=== PATIENT | male | born 1955 | race African-American/Black ===

== ENCOUNTER 2023-10-13 20:48 | Inpatient (IN) | payer BC, OTHER ==
[~2023-10-13] VITALS: Ht 154.9 cm; Wt 61.7 kg
[2023-10-13] MEDS ORDERED: DEXTROSE (50%) 50ML SYRG IV PRN (23:45)
[2023-10-13] MEDS: D5W/SOD CHL 0.45% 1,000 ML IV SCH (23:45)
[2023-10-13] MEDS ORDERED: MORPHINE SULFATE INJ 2 MG/ml SYRG IV PRN (23:45)
[2023-10-14] MEDS: D5W/SOD CHL 0.45% 1,000 ML IV SCH ×2 (00:42→19:45)
[2023-10-14] MEDS: ACCU-CHEK COMFORT CURVE STRIP VI SCH ×4 (00:43→18:00)
[2023-10-14] MEDS: InsuLIN REG 1unit/0.01ml Soln (100units/ml) SC SCH ×4 (05:36→18:00)
[2023-10-14 06:17] LABS: Basophils # (auto) 0 10 ^3/uL (0-0.2); Basophils % (auto) 0.4 % (0.0-2.0); Eosinophils # (auto) 0 10 ^3/uL (0-0.8); Eosinophils % (auto) 0.2 % (0.0-7.0); Hematocrit 39.3 % (41.0-53.0); Hemoglobin 13.2 g/dL (13.5-17.5); Lymphocytes # (auto) 0.1 10 ^3/uL (0.4-5.4); Lymphocytes % (auto) 3.3 % (10.0-50.0); Mean Corpuscular Hemoglobin 29.1 pg (28.0-32.0); Mean Corpuscular Hgb Conc. 33.6 g/dL (32.0-36.0); Mean Corpuscular Volume 86.8 fL (80.0-100.0); Monocytes # (auto) 0.5 10 ^3/uL (0-1.3); Monocytes % (auto) 17.5 % (0.0-12.0); Neutrophils # (auto) 2.3 10 ^3/uL (1.6-8.6); Neutrophils % (auto) 78.6 % (37.0-80.0); Nucleated Red Blood Cells % 0.1 %; Red Blood Cells 4.52 10^6/uL (4.5-5.90); Red Cell Distribution Width 15.4 % (11.8-14.3); White Blood Cell 2.9 10^3/uL (4.4-10.8)
[2023-10-14 06:25] LABS: Anion Gap 8 (5-15); Carbon Dioxide 26 mmol/L (20-30); Chloride 105 mmol/L (98-107); Sodium 139 mmol/L (136-145)
[2023-10-14 06:26] LABS: Calcium 9.8 mg/dL (8.5-10.1)
[2023-10-14 06:31] LABS: BUN/Creatinine Ratio 24.9 (10.0-20.0); Blood Urea Nitrogen 56 mg/dL (9-23); Glucose 126 mg/dL (74-106)
[2023-10-14 08:00] VITALS: PULSE 93; RESP 20
[2023-10-14] MEDS: MORPHINE SULFATE INJ 2 MG/ml SYRG IV PRN ×2 (08:43→23:48)
[2023-10-14 09:11] VITALS: BP 125/92; PULSE 93; RESP 20; TEMP 97.5; O2SAT 97
[2023-10-14] MEDS ORDERED: PANTOPRAZOLE 40 MG/10 ML VIAL INJ IV SCH (10:00)
[2023-10-14 12:38] VITALS: BP 127/68; PULSE 87; RESP 20; TEMP 97.5; O2SAT 96
[2023-10-14] MEDS ORDERED: CLINIMIX PER PHARMACY 0 ML IV SCH (13:15)
[2023-10-14 15:33] LABS: Magnesium 2.3 mg/dL (1.6-2.6)
[2023-10-14 15:34] LABS: Phosphorus 3.5 mg/dL (2.4-5.1)
[2023-10-14 16:45] VITALS: BP 134/83; PULSE 70; RESP 20; TEMP 97.4; O2SAT 100
[2023-10-14] MEDS ORDERED: DOCU-265 PO (16:50)
[2023-10-14] MEDS ORDERED: PANT1INJ3 PO (16:50)
[2023-10-14] MEDS ORDERED: FURO20TA3 PO (16:50)
[2023-10-14] MEDS ORDERED: LORA-1121 PO (16:50)
[2023-10-14] MEDS ORDERED: DICL50TA2 PO (16:50)
[2023-10-14] MEDS ORDERED: ISOS1TAB28 PO (16:50)
[2023-10-14] MEDS ORDERED: ATOR40TA52 PO (16:50)
[2023-10-14] MEDS ORDERED: NIFE1TAB30 PO (16:50)
[2023-10-14] MEDS ORDERED: LOSA100T58 PO (16:50)
[2023-10-14] MEDS ORDERED: CARV12.544 PO (16:50)
[2023-10-14] MEDS ORDERED: TAMS0.4C36 PO (16:50)
[2023-10-14] MEDS ORDERED: OMEP20TA PO (16:50)
[2023-10-14] MEDS: AMINO ACID INFUSION IN D10W 1,000 ML IV SCH (19:45)
[2023-10-14 20:00] VITALS: PULSE 80
[2023-10-14 22:00] VITALS: BP 129/67; PULSE 85; RESP 16; TEMP 98.5; O2SAT 98
[2023-10-15] VITALS (7 sets, daily range): BP systolic 109–135; BP diastolic 61–84; PULSE 79–87; RESP 16–20; TEMP 98–98.3; O2SAT 95–100
[2023-10-15 05:34] LABS: Hematocrit 42.2 % (41.0-53.0); Hemoglobin 13.8 g/dL (13.5-17.5); Mean Corpuscular Hemoglobin 29.1 pg (28.0-32.0); Mean Corpuscular Hgb Conc. 32.7 g/dL (32.0-36.0); Mean Corpuscular Volume 88.9 fL (80.0-100.0); Red Blood Cells 4.75 10^6/uL (4.5-5.90); Red Cell Distribution Width 15.4 % (11.8-14.3); White Blood Cell 2.7 10^3/uL (4.4-10.8)
[2023-10-15 05:40] LABS: Potassium 3.8 mmol/L (3.5-5.1)
[2023-10-15 05:41] LABS: Calcium 9.5 mg/dL (8.7-10.4)
[2023-10-15 05:46] LABS: BUN/Creatinine Ratio 20.6 (10.0-20.0); Magnesium 2.2 mg/dL (1.6-2.6)
[2023-10-15 05:48] LABS: Phosphorus 2.9 mg/dL (2.4-5.1)
[2023-10-15] MEDS: InsuLIN REG 1unit/0.01ml Soln (100units/ml) SC SCH ×4 (06:00→18:00)
[2023-10-15] MEDS: ACCU-CHEK COMFORT CURVE STRIP VI SCH ×4 (06:12→19:06)
[2023-10-15 06:14] LABS: Band Neutrophils % (manual) 0; Basophils % (manual) 0 (0.0-2.0); Blast Cells 0; Eosinophils % (manual) 0 (0-7); Metamyelocytes % 0; Myelocytes % 0; Promyelocytes % 0; Reactive Lymphocytes 0
[2023-10-15 08:41] LABS: Lymphocytes % (manual) 5 (10.0-50.0); Monocytes % (manual) 23 (0-12)
[2023-10-15 08:42] LABS: Platelet Estimate Decreased
[2023-10-15] MEDS: ONDANSETRON HCL 4 MG/2 ML VIAL IV PRN ×2 (11:51→16:47)
[2023-10-15] MEDS: D5W/SOD CHL 0.45% 1,000 ML IV SCH (16:47)
[2023-10-15 17:01] LABS: INR 1.15 (0.9-1.15); Partial Thromboplastin Time 30.4 SEC (24.5-34.5)
[2023-10-15] MEDS: MORPHINE SULFATE INJ 2 MG/ml SYRG IV PRN (17:02)
[2023-10-15] MEDS: AMINO ACID INFUSION IN D10W 1,000 ML IV SCH (20:21)
[2023-10-16] VITALS (7 sets, daily range): BP systolic 108–136; BP diastolic 64–83; PULSE 70–99; RESP 14–21; TEMP 98–98.6; O2SAT 98–100
[2023-10-16 05:33] LABS: Basophils # (auto) 0 10 ^3/uL (0-0.2); Basophils % (auto) 0.6 % (0.0-2.0); Eosinophils # (auto) 0 10 ^3/uL (0-0.8); Eosinophils % (auto) 0.8 % (0.0-7.0); Hematocrit 38.6 % (41.0-53.0); Hemoglobin 12.8 g/dL (13.5-17.5); Lymphocytes # (auto) 0.1 10 ^3/uL (0.4-5.4); Lymphocytes % (auto) 4.2 % (10.0-50.0); Mean Corpuscular Hemoglobin 29.1 pg (28.0-32.0); Mean Corpuscular Hgb Conc. 33.3 g/dL (32.0-36.0); Mean Corpuscular Volume 87.6 fL (80.0-100.0); Monocytes # (auto) 0.4 10 ^3/uL (0-1.3); Monocytes % (auto) 17.6 % (0.0-12.0); Neutrophils # (auto) 1.7 10 ^3/uL (1.6-8.6); Neutrophils % (auto) 76.8 % (37.0-80.0); Red Blood Cells 4.41 10^6/uL (4.5-5.90); Red Cell Distribution Width 15.4 % (11.8-14.3); White Blood Cell 2.2 10^3/uL (4.4-10.8)
[2023-10-16] MEDS: D5W/SOD CHL 0.45% 1,000 ML IV SCH (05:43)
[2023-10-16] MEDS: InsuLIN REG 1unit/0.01ml Soln (100units/ml) SC SCH ×5 (06:00→23:12)
[2023-10-16] MEDS: ACCU-CHEK COMFORT CURVE STRIP VI SCH ×5 (06:00→23:12)
[2023-10-16] MEDS: MORPHINE SULFATE INJ 2 MG/ml SYRG IV PRN ×3 (09:05→20:17)
[2023-10-16] MEDS: ONDANSETRON HCL 4 MG/2 ML VIAL IV PRN ×3 (09:10→20:17)
[2023-10-16 09:36] LABS: Alanine Aminotransferase 10 U/L (7-40); Albumin 4.3 g/dL (3.2-4.8); Alkaline Phosphatase 71 U/L (46-116); Anion Gap 7 (5-15); Aspartate Aminotransferase 20 U/L (13-40); BUN/Creatinine Ratio 19.5 (10.0-20.0); Blood Urea Nitrogen 33 mg/dL (9-23); Calcium 9.9 mg/dL (8.5-10.1); Carbon Dioxide 25 mmol/L (20-30); Chloride 105 mmol/L (98-107); Glucose 102 mg/dL (74-106); Sodium 137 mmol/L (136-145)
[2023-10-16 09:37] LABS: Bilirubin, Total 0.4 mg/dL (0.2-1.0); Phosphorus 2.3 mg/dL (2.4-5.1); Total Protein 7.2 g/dL (5.7-8.2)
[2023-10-16 10:37] LABS: Magnesium 1.7 mg/dL (1.6-2.6)
[2023-10-16] MEDS ORDERED: POTASSIUM PHOSPHATE 22 MEQ in SODIUM CHL 0.9% 100 ML IV ONE (11:15)
[2023-10-16] MEDS: AMINO ACID INFUSION IN D10W 1,000 ML IV SCH (19:49)
[2023-10-17] VITALS (7 sets, daily range): BP systolic 124–153; BP diastolic 65–88; PULSE 77–115; RESP 18–20; TEMP 98.1–99.2; O2SAT 97–100
[2023-10-17] MEDS: ONDANSETRON HCL 4 MG/2 ML VIAL IV PRN ×4 (01:01→22:44)
[2023-10-17] MEDS: MORPHINE SULFATE INJ 2 MG/ml SYRG IV PRN ×4 (01:01→22:45)
[2023-10-17] MEDS: ACCU-CHEK COMFORT CURVE STRIP VI SCH ×4 (05:14→23:38)
[2023-10-17] MEDS: InsuLIN REG 1unit/0.01ml Soln (100units/ml) SC SCH ×4 (05:14→23:38)
[2023-10-17 05:38] LABS: Alanine Aminotransferase 10 U/L (7-40); Albumin 4.1 g/dL (3.2-4.8); Alkaline Phosphatase 66 U/L (46-116); Anion Gap 8 (5-15); Aspartate Aminotransferase 13 U/L (13-40); BUN/Creatinine Ratio 21.9 (10.0-20.0); Blood Urea Nitrogen 33 mg/dL (9-23); Calcium 9.2 mg/dL (8.7-10.4); Carbon Dioxide 22 mmol/L (20-30); Chloride 106 mmol/L (98-107); Glucose 106 mg/dL (74-106); Magnesium 1.5 mg/dL (1.6-2.6); Potassium 3.7 mmol/L (3.5-5.1); Sodium 136 mmol/L (136-145)
[2023-10-17 05:39] LABS: Bilirubin, Total 0.4 mg/dL (0.2-1.0); Phosphorus 2.1 mg/dL (2.4-5.1)
[2023-10-17 05:57] LABS: Hematocrit 42.2 % (41.0-53.0); Mean Corpuscular Hemoglobin 28.8 pg (28.0-32.0); Mean Corpuscular Hgb Conc. 33.2 g/dL (32.0-36.0); Mean Corpuscular Volume 86.9 fL (80.0-100.0); Red Blood Cells 4.86 10^6/uL (4.5-5.90); Red Cell Distribution Width 15.5 % (11.8-14.3); White Blood Cell 2.6 10^3/uL (4.4-10.8)
[2023-10-17 06:00] LABS: Basophils % (manual) 0 (0.0-2.0); Blast Cells 0; Eosinophils % (manual) 0 (0-7); Myelocytes % 0; Promyelocytes % 0; Reactive Lymphocytes 0
[2023-10-17] MEDS: D5W/SOD CHL 0.45% 1,000 ML IV SCH (06:24)
[2023-10-17] MEDS ORDERED: POTASSIUM PHOSPHATE 22 MEQ in SODIUM CHL 0.9% 100 ML IV ONE (12:15)
[2023-10-17] MEDS ORDERED: MAGNESIUM SULFATE 1GM/100ML 100 ML IV ONE (12:15)
[2023-10-17 13:29] LABS: Band Neutrophils % (manual) 2; Lymphocytes % (manual) 12 (10.0-50.0); Metamyelocytes % 1; Monocytes % (manual) 22 (0-12)
[2023-10-17 13:30] LABS: Platelet Estimate Decreased
[2023-10-17] MEDS: AMINO ACID INFUSION IN D10W 1,000 ML IV SCH (19:58)
[2023-10-18] VITALS (8 sets, daily range): BP systolic 123–150; BP diastolic 80–87; PULSE 69–115; RESP 12–20; TEMP 97.6–98.8; O2SAT 96–100
[2023-10-18] MEDS: D5W/SOD CHL 0.45% 1,000 ML IV SCH ×2 (03:45→23:45)
[2023-10-18] MEDS: InsuLIN REG 1unit/0.01ml Soln (100units/ml) SC SCH ×3 (06:00→17:13)
[2023-10-18] MEDS: ACCU-CHEK COMFORT CURVE STRIP VI SCH ×3 (06:23→17:13)
[2023-10-18] MEDS: ONDANSETRON HCL 4 MG/2 ML VIAL IV PRN (06:23)
[2023-10-18] MEDS: MORPHINE SULFATE INJ 2 MG/ml SYRG IV PRN ×2 (06:23→21:13)
[2023-10-18 06:30] LABS: Potassium 3.7 mmol/L (3.5-5.1)
[2023-10-18 06:32] LABS: Calcium 8.8 mg/dL (8.7-10.4)
[2023-10-18 06:36] LABS: Hematocrit 36.9 % (41.0-53.0); Hemoglobin 12.5 g/dL (13.5-17.5); Mean Corpuscular Hemoglobin 29.4 pg (28.0-32.0); Mean Corpuscular Hgb Conc. 33.9 g/dL (32.0-36.0); Mean Corpuscular Volume 86.8 fL (80.0-100.0); Red Blood Cells 4.26 10^6/uL (4.5-5.90); Red Cell Distribution Width 15.4 % (11.8-14.3); White Blood Cell 2.5 10^3/uL (4.4-10.8)
[2023-10-18 06:37] LABS: Magnesium 1.6 mg/dL (1.6-2.6)
[2023-10-18 06:38] LABS: Albumin 3.7 g/dL (3.2-4.8)
[2023-10-18 06:39] LABS: Phosphorus 1.9 mg/dL (2.4-5.1)
[2023-10-18 06:43] LABS: BUN/Creatinine Ratio 17.7 (10.0-20.0)
[2023-10-18 07:12] LABS: Band Neutrophils % (manual) 0; Basophils % (manual) 0 (0.0-2.0); Blast Cells 0; Eosinophils % (manual) 0 (0-7); Myelocytes % 0; Promyelocytes % 0; Reactive Lymphocytes 0
[2023-10-18] MEDS ORDERED: KETAMINE 50mg/ML 1ml syringe ONE (09:43)
[2023-10-18] MEDS ORDERED: LIDOCAINE W/ EPINEPHRINE 1% 20ML VIAL ONE (09:46)
[2023-10-18] MEDS ORDERED: BUPIVACAINE HCL 0.25% P/F 10 ML VIAL ONE (09:46)
[2023-10-18] MEDS ORDERED: CELECOXIB 100 MG CAP ONE (09:51)
[2023-10-18] MEDS ORDERED: GABAPENTIN 300 MG CAP ONE (09:51)
[2023-10-18] MEDS ORDERED: ACETAMINOPHEN IV 100 ML IV ONE (09:51)
[2023-10-18] MEDS ORDERED: ceFAZolin 2 GM/D5W100ml 100 ML IV ONE (09:59)
[2023-10-18] MEDS ORDERED: CELECOXIB 100 MG CAP PO ONE (10:00)
[2023-10-18] MEDS ORDERED: ACETAMINOPHEN IV 1000 MG/100ML (10MG/ML) IV ONE (10:00)
[2023-10-18] MEDS ORDERED: GABAPENTIN 300 MG CAP PO ONE (10:00)
[2023-10-18] MEDS ORDERED: LABETALOL HCL 5 MG/ML 4ML SYRINGE IV PRN (11:15)
[2023-10-18] MEDS ORDERED: ePHEDrine SULFATE 50 MG/ML AMP IV PRN (11:15)
[2023-10-18] MEDS ORDERED: SODIUM PHOSPHATES 20 MEQ in SODIUM CHL 0.9% 100 ML IV ONE (11:15)
[2023-10-18] MEDS ORDERED: NALOXONE HCL 0.4 MG/ML VIAL IV PRN (11:15)
[2023-10-18] MEDS ORDERED: ONDANSETRON HCL 4 MG/2 ML VIAL IV PRN (11:15)
[2023-10-18] MEDS ORDERED: fentaNYL CITRATE 100 MCG/2 ML VL IV PRN (11:15)
[2023-10-18] MEDS ORDERED: FLUMAZENIL 0.1 MG/ML INJ 10ML MDV IV PRN (11:15)
[2023-10-18] MEDS ORDERED: hydrALAZINE HCL 20 MG/ML VL IV PRN (11:15)
[2023-10-18] MEDS ORDERED: HYDROmorphone HCL 2 MG/ML VL/or syr ONE (11:16)
[2023-10-18] MEDS: HYDROmorphone HCL 2 MG/ML VL/or syr IV PRN ×3 (11:18→11:50)
[2023-10-18 12:07] LABS: Lymphocytes % (manual) 3 (10.0-50.0)
[2023-10-18 12:09] LABS: Metamyelocytes % 1; Monocytes % (manual) 21 (0-12); Platelet Estimate Decreased
[2023-10-18] MEDS: AMINO ACID INFUSION IN D10W 1,000 ML IV SCH (21:12)
[2023-10-19] VITALS (7 sets, daily range): BP systolic 122–164; BP diastolic 75–93; PULSE 74–95; RESP 16–20; TEMP 98.1–99.2; O2SAT 91–100
[2023-10-19] MEDS: ONDANSETRON HCL 4 MG/2 ML VIAL IV PRN ×3 (03:29→16:20)
[2023-10-19] MEDS: ACCU-CHEK COMFORT CURVE STRIP VI SCH ×4 (05:19→18:21)
[2023-10-19] MEDS: InsuLIN REG 1unit/0.01ml Soln (100units/ml) SC SCH ×4 (06:00→18:00)
[2023-10-19 06:57] LABS: Alanine Aminotransferase 10 U/L (7-40); Albumin 3.6 g/dL (3.2-4.8); Alkaline Phosphatase 58 U/L (46-116); Anion Gap 6 (5-15); Aspartate Aminotransferase 16 U/L (13-40); BUN/Creatinine Ratio 16.9 (10.0-20.0); Blood Urea Nitrogen 22 mg/dL (9-23); Calcium 8.7 mg/dL (8.7-10.4); Carbon Dioxide 21 mmol/L (20-30); Chloride 106 mmol/L (98-107); Glucose 105 mg/dL (74-106); Magnesium 1.4 mg/dL (1.6-2.6); Potassium 3.4 mmol/L (3.5-5.1); Sodium 133 mmol/L (136-145)
[2023-10-19 06:58] LABS: Bilirubin, Total 0.4 mg/dL (0.2-1.0); Phosphorus 1.5 mg/dL (2.4-5.1); Total Protein 6.1 g/dL (5.7-8.2)
[2023-10-19] MEDS: MORPHINE SULFATE INJ 2 MG/ml SYRG IV PRN ×2 (11:27→16:22)
[2023-10-19] MEDS ORDERED: POTASSIUM PHOSPHATE 44 MEQ in D5W 5% 250 ML IV ONE (14:15)
[2023-10-19] MEDS: MAGNESIUM SULFATE 1GM/100ML 100 ML IV SCH ×2 (15:31→18:21)
[2023-10-19] MEDS: D5W/SOD CHL 0.45% 1,000 ML IV SCH (19:45)
[2023-10-19] MEDS: AMINO ACID INFUSION IN D10W 1,000 ML IV SCH (21:28)
[2023-10-20] VITALS (7 sets, daily range): BP systolic 116–154; BP diastolic 74–96; PULSE 86–100; RESP 14–22; TEMP 98–98.8; O2SAT 97–100
[2023-10-20] MEDS: ONDANSETRON HCL 4 MG/2 ML VIAL IV PRN ×5 (01:08→23:58)
[2023-10-20] MEDS: InsuLIN REG 1unit/0.01ml Soln (100units/ml) SC SCH ×5 (06:00→23:54)
[2023-10-20] MEDS: ACCU-CHEK COMFORT CURVE STRIP VI SCH ×5 (06:02→23:52)
[2023-10-20 06:19] LABS: Potassium 3.5 mmol/L (3.5-5.1)
[2023-10-20 06:20] LABS: Calcium 8.7 mg/dL (8.7-10.4)
[2023-10-20 06:25] LABS: BUN/Creatinine Ratio 8.5 (10.0-20.0)
[2023-10-20 06:26] LABS: Albumin 3.8 g/dL (3.2-4.8); Magnesium 1.7 mg/dL (1.6-2.6)
[2023-10-20 06:28] LABS: Phosphorus 2.4 mg/dL (2.4-5.1)
[2023-10-20] MEDS ORDERED: IBUPROFEN 100MG/5ML ORAL SUSP 100 MG/5 ML UD PO PRN (09:00)
[2023-10-20] MEDS: D5W/SOD CHL 0.45% 1,000 ML IV SCH (13:11)
[2023-10-20] MEDS: METOCLOPRAMIDE 10 mg/10ml ORAL soln GT SCH ×2 (14:00→21:55)
[2023-10-20] MEDS: NITROGLYCERIN 0.4 MG SL TAB SL PRN ×3 (15:49→16:03)
[2023-10-20] MEDS ORDERED: POTASSIUM PHOSPHATE 22 MEQ in SODIUM CHL 0.9% 100 ML IV ONE (16:00)
[2023-10-20] MEDS: AMINO ACID INFUSION IN D10W 1,000 ML IV SCH (20:10)
[2023-10-20] MEDS ORDERED: Vital AF 1.2 Cal 1 liter bottle GT SCH (22:00)
[2023-10-21] VITALS (8 sets, daily range): BP systolic 112–127; BP diastolic 68–87; PULSE 77–109; RESP 19–32; TEMP 98.1–99.5; O2SAT 97–100
[2023-10-21] MEDS: NITROGLYCERIN 0.4 MG SL TAB SL PRN ×3 (02:42→03:02)
[2023-10-21 05:11] LABS: Alanine Aminotransferase 16 U/L (7-40); Albumin 3.8 g/dL (3.2-4.8); Alkaline Phosphatase 63 U/L (46-116); Anion Gap 9 (5-15); Aspartate Aminotransferase 21 U/L (13-40); BUN/Creatinine Ratio 15.6 (10.0-20.0); Bilirubin, Total 0.4 mg/dL (0.2-1.0); Blood Urea Nitrogen 21 mg/dL (9-23); Carbon Dioxide 23 mmol/L (20-30); Chloride 102 mmol/L (98-107); Glucose 126 mg/dL (74-106); Magnesium 1.3 mg/dL (1.6-2.6); Phosphorus 2.3 mg/dL (2.4-5.1); Potassium 3.1 mmol/L (3.5-5.1); Sodium 134 mmol/L (136-145); Total Protein 6.5 g/dL (5.7-8.2)
[2023-10-21] MEDS: InsuLIN REG 1unit/0.01ml Soln (100units/ml) SC SCH ×4 (06:00→23:59)
[2023-10-21] MEDS: METOCLOPRAMIDE 10 mg/10ml ORAL soln GT SCH ×3 (06:01→21:35)
[2023-10-21] MEDS: ACCU-CHEK COMFORT CURVE STRIP VI SCH ×4 (06:01→23:55)
[2023-10-21] MEDS: MAGNESIUM SULFATE 1GM/100ML 100 ML IV SCH ×2 (09:37→09:41)
[2023-10-21] MEDS: D5W/SOD CHL 0.45% 1,000 ML IV SCH (09:40)
[2023-10-21] MEDS: ONDANSETRON HCL 4 MG/2 ML VIAL IV PRN (09:49)
[2023-10-21] MEDS ORDERED: POTASSIUM PHOSPHATE 44 MEQ in D5W 5% 250 ML IV ONE (11:00)
[2023-10-21] MEDS: clonazePAM 0.5 MG TAB PO PRN (16:00)
[2023-10-21] MEDS: AMINO ACID INFUSION IN D10W 1,000 ML IV SCH (20:18)
[2023-10-21] MEDS ORDERED: diphenhdrAMINE HCL 50 MG/1 ML VL IV ONE (22:30)
[2023-10-22] VITALS (8 sets, daily range): BP systolic 125–143; BP diastolic 67–88; PULSE 57–125; RESP 16–25; TEMP 99.1–100; O2SAT 93–98
[2023-10-22] MEDS: ONDANSETRON HCL 4 MG/2 ML VIAL IV PRN ×3 (00:04→18:45)
[2023-10-22] MEDS: clonazePAM 0.5 MG TAB PO PRN ×2 (04:02→15:19)
[2023-10-22] MEDS: InsuLIN REG 1unit/0.01ml Soln (100units/ml) SC SCH ×4 (06:00→23:26)
[2023-10-22 06:11] LABS: Alanine Aminotransferase 30 U/L (7-40); Albumin 3.6 g/dL (3.2-4.8); Alkaline Phosphatase 73 U/L (46-116); Anion Gap 5 (5-15); Aspartate Aminotransferase 28 U/L (13-40); BUN/Creatinine Ratio 16.1 (10.0-20.0); Blood Urea Nitrogen 23 mg/dL (9-23); Calcium 8.9 mg/dL (8.7-10.4); Carbon Dioxide 26 mmol/L (20-30); Chloride 102 mmol/L (98-107); Glucose 120 mg/dL (74-106); Magnesium 1.6 mg/dL (1.6-2.6); Phosphorus 2.3 mg/dL (2.4-5.1); Potassium 3.3 mmol/L (3.5-5.1); Sodium 133 mmol/L (136-145)
[2023-10-22 06:12] LABS: Bilirubin, Total 0.3 mg/dL (0.2-1.0); Total Protein 6.3 g/dL (5.7-8.2)
[2023-10-22] MEDS: ACCU-CHEK COMFORT CURVE STRIP VI SCH ×4 (06:14→23:26)
[2023-10-22] MEDS: METOCLOPRAMIDE 10 mg/10ml ORAL soln GT SCH ×3 (06:16→22:09)
[2023-10-22] MEDS: D5W/SOD CHL 0.45% 1,000 ML IV SCH (10:59)
[2023-10-22] MEDS ORDERED: LACTULOSE 20Gm/30ML SOLN PO PRN (11:15)
[2023-10-22] MEDS: MAGNESIUM SULFATE 1GM/100ML 100 ML IV SCH ×2 (15:19→18:03)
[2023-10-22] MEDS ORDERED: hydrALAZINE HCL 20 MG/ML VL IV PRN (16:00)
[2023-10-22] MEDS ORDERED: amLODIPine BESYLATE 5 MG TAB PO SCH (16:00)
[2023-10-22] MEDS: NITROGLYCERIN 0.4 MG SL TAB SL PRN (17:54)
[2023-10-22] MEDS ORDERED: POTASSIUM PHOSPHATE 44 MEQ in D5W 5% 250 ML IV ONE (18:00)
[2023-10-22] MEDS ORDERED: FUROSEMIDE 20 MG/2 ML VIAL IV ONE (18:30)
[2023-10-22] MEDS ORDERED: FUROSEMIDE 20 MG/2 ML VIAL ONE (18:33)
[2023-10-22 19:29] LABS: Urine Bacteria FEW /hpf (None Seen); Urine Blood 1+ /uL (Negative); Urine Clarity Clear (Clear); Urine Color Colorless (Yellow); Urine Protein, UAD TRACE (Negative); Urine Specific Gravity 1.008 (1.001-1.035); Urine Urobilinogen Normal (Negative); Urine WBC 3 /hpf (0 - 3); Urine pH 5.5 (5.0-8.0)
[2023-10-22] MEDS: PANTOPRAZOLE 40 MG/10 ML VIAL INJ IV SCH (20:13)
[2023-10-22] MEDS: AMINO ACID INFUSION IN D10W 1,000 ML IV SCH (20:13)
[2023-10-22 20:14] LABS: Base Excess 1.1 mmol/L (-2.0-2.0)
[2023-10-22] MEDS: PIPERACILLIN-TAZOB 3.375GM 100 ML IV SCH (22:09)
[2023-10-22] MEDS: METOPROLOL TARTRATE 25 MG TAB PO SCH (22:13)
[2023-10-23] VITALS (7 sets, daily range): BP systolic 99–138; BP diastolic 55–88; PULSE 101–121; RESP 16–21; TEMP 97.5–98.4; O2SAT 95–98
[2023-10-23 02:33] LABS: Basophils # (auto) 0 10 ^3/uL (0-0.2); Basophils % (auto) 0.1 % (0.0-2.0); Eosinophils # (auto) 0 10 ^3/uL (0-0.8); Hematocrit 37.9 % (41.0-53.0); Hemoglobin 12.6 g/dL (13.5-17.5); Lymphocytes # (auto) 0.1 10 ^3/uL (0.4-5.4); Lymphocytes % (auto) 0.8 % (10.0-50.0); Mean Corpuscular Hemoglobin 29.1 pg (28.0-32.0); Mean Corpuscular Hgb Conc. 33.4 g/dL (32.0-36.0); Mean Corpuscular Volume 87.1 fL (80.0-100.0); Monocytes # (auto) 0.5 10 ^3/uL (0-1.3); Monocytes % (auto) 6.6 % (0.0-12.0); Neutrophils # (auto) 7.3 10 ^3/uL (1.6-8.6); Neutrophils % (auto) 92.5 % (37.0-80.0); Red Blood Cells 4.35 10^6/uL (4.5-5.90); Red Cell Distribution Width 15.5 % (11.8-14.3); White Blood Cell 7.9 10^3/uL (4.4-10.8)
[2023-10-23 02:38] LABS: Alanine Aminotransferase 37 U/L (7-40); Albumin 3.9 g/dL (3.2-4.8); Alkaline Phosphatase 68 U/L (46-116); Anion Gap 7 (5-15); Aspartate Aminotransferase 27 U/L (13-40); BUN/Creatinine Ratio 16.8 (10.0-20.0); Bilirubin, Total 0.7 mg/dL (0.2-1.0); Blood Urea Nitrogen 26 mg/dL (9-23); Calcium 8.9 mg/dL (8.7-10.4); Carbon Dioxide 27 mmol/L (20-30); Chloride 100 mmol/L (98-107); Glucose 104 mg/dL (74-106); Potassium 3.4 mmol/L (3.5-5.1); Sodium 134 mmol/L (136-145); Total Protein 6.8 g/dL (5.7-8.2)
[2023-10-23] MEDS ORDERED: ACETAMINOPHEN 325 MG TAB PO PRN (03:30)
[2023-10-23] MEDS: D5W/SOD CHL 0.45% 1,000 ML IV SCH ×2 (03:45→13:40)
[2023-10-23] MEDS ORDERED: ENOXAPARIN SOD 100 MG/1 ML SYRINGE SC ONE (04:15)
[2023-10-23] MEDS: InsuLIN REG 1unit/0.01ml Soln (100units/ml) SC SCH ×3 (06:00→17:49)
[2023-10-23] MEDS: METOCLOPRAMIDE 10 mg/10ml ORAL soln GT SCH ×3 (06:23→21:17)
[2023-10-23] MEDS: PIPERACILLIN-TAZOB 3.375GM 100 ML IV SCH ×3 (06:23→21:19)
[2023-10-23] MEDS: ACCU-CHEK COMFORT CURVE STRIP VI SCH ×3 (06:23→17:44)
[2023-10-23] MEDS: FUROSEMIDE 20 MG/2 ML VIAL IV SCH ×2 (06:23→17:44)
[2023-10-23 06:27] LABS: Hematocrit 34.4 % (41.0-53.0); Hemoglobin 11.8 g/dL (13.5-17.5); Mean Corpuscular Hemoglobin 29.3 pg (28.0-32.0); Mean Corpuscular Hgb Conc. 34.1 g/dL (32.0-36.0); Mean Corpuscular Volume 85.9 fL (80.0-100.0); Red Blood Cells 4.01 10^6/uL (4.5-5.90); Red Cell Distribution Width 15.7 % (11.8-14.3); White Blood Cell 7.4 10^3/uL (4.4-10.8)
[2023-10-23 06:37] LABS: Alanine Aminotransferase 35 U/L (7-40); Albumin 3.6 g/dL (3.2-4.8); Alkaline Phosphatase 70 U/L (46-116); Anion Gap 9 (5-15); BUN/Creatinine Ratio 14.6 (10.0-20.0); Blood Urea Nitrogen 25 mg/dL (9-23); Calcium 8.5 mg/dL (8.7-10.4); Carbon Dioxide 24 mmol/L (20-30); Chloride 100 mmol/L (98-107); GFR African American 51 mL/min; GFR Non-African American 42 mL/min; Glucose 119 mg/dL (74-106); Magnesium 1.8 mg/dL (1.6-2.6); Potassium 3.3 mmol/L (3.5-5.1); Sodium 133 mmol/L (136-145)
[2023-10-23 06:38] LABS: Aspartate Aminotransferase 27 U/L (13-40); Bilirubin, Total 0.6 mg/dL (0.2-1.0); Phosphorus 3.4 mg/dL (2.4-5.1)
[2023-10-23 06:39] LABS: Basophils % (manual) 0 (0.0-2.0); Blast Cells 0; Metamyelocytes % 0; Myelocytes % 0; Promyelocytes % 0; Reactive Lymphocytes 0
[2023-10-23 08:01] LABS: Band Neutrophils % (manual) 5; Eosinophils % (manual) 1 (0-7); Lymphocytes % (manual) 2 (10.0-50.0)
[2023-10-23 08:02] LABS: Monocytes % (manual) 5 (0-12)
[2023-10-23 08:03] LABS: Anisocytosis Slight; Platelet Estimate Decreased
[2023-10-23] MEDS: PANTOPRAZOLE 40 MG/10 ML VIAL INJ IV SCH (09:58)
[2023-10-23] MEDS ORDERED: EMPAGLIFLOZIN 10 MG TAB PO SCH (10:00)
[2023-10-23] MEDS: METOPROLOL TARTRATE 25 MG TAB PO SCH (10:00)
[2023-10-23] MEDS ORDERED: MAGNESIUM SULFATE 1GM/100ML 100 ML IV ONE (13:00)
[2023-10-23] MEDS: POTASSIUM CHL 20MEQ/100ML 100 ML IV SCH ×2 (13:32→15:30)
[2023-10-23] MEDS ORDERED: Vital AF 1.2 Cal 1 liter bottle GT SCH (18:00)
[2023-10-23] MEDS ORDERED: DIGOXIN (250MCG/ML) 2 ML AMPULE IV ONE (18:00)
[2023-10-23] MEDS: AMINO ACID INFUSION IN D10W 1,000 ML IV SCH (20:50)
[2023-10-23] MEDS ORDERED: SODIUM CHLORIDE 0.9% 500 ML IV ONE (21:15)
[2023-10-23] MEDS: ONDANSETRON HCL 4 MG/2 ML VIAL IV PRN (21:17)
[2023-10-23] MEDS: METOPROLOL TARTRATE 25 MG TAB GT SCH (21:17)
[2023-10-24] VITALS (8 sets, daily range): BP systolic 96–120; BP diastolic 39–73; PULSE 80–110; RESP 17–22; TEMP 98–99.1; O2SAT 94–100
[2023-10-24] MEDS: ACCU-CHEK COMFORT CURVE STRIP VI SCH ×4 (00:07→18:29)
[2023-10-24] MEDS: PIPERACILLIN-TAZOB 3.375GM 100 ML IV SCH ×3 (05:56→22:05)
[2023-10-24] MEDS: InsuLIN REG 1unit/0.01ml Soln (100units/ml) SC SCH ×4 (05:59→18:00)
[2023-10-24] MEDS: METOCLOPRAMIDE 10 mg/10ml ORAL soln GT SCH ×3 (06:01→22:09)
[2023-10-24 06:02] LABS: Basophils # (auto) 0 10 ^3/uL (0-0.2); Eosinophils # (auto) 0 10 ^3/uL (0-0.8); Eosinophils % (auto) 0.2 % (0.0-7.0); Hematocrit 34.6 % (41.0-53.0); Hemoglobin 11.5 g/dL (13.5-17.5); Lymphocytes # (auto) 0.1 10 ^3/uL (0.4-5.4); Lymphocytes % (auto) 0.9 % (10.0-50.0); Mean Corpuscular Hemoglobin 28.9 pg (28.0-32.0); Mean Corpuscular Hgb Conc. 33.2 g/dL (32.0-36.0); Monocytes # (auto) 0.4 10 ^3/uL (0-1.3); Monocytes % (auto) 6.1 % (0.0-12.0); Neutrophils # (auto) 6.6 10 ^3/uL (1.6-8.6); Neutrophils % (auto) 92.8 % (37.0-80.0); Red Blood Cells 3.98 10^6/uL (4.5-5.90); Red Cell Distribution Width 15.9 % (11.8-14.3); White Blood Cell 7.1 10^3/uL (4.4-10.8)
[2023-10-24 06:13] LABS: Chloride 101 mmol/L (98-107); Potassium 3.3 mmol/L (3.5-5.1); Sodium 133 mmol/L (136-145)
[2023-10-24 06:14] LABS: Carbon Dioxide 25 mmol/L (20-30)
[2023-10-24 06:15] LABS: Calcium 8.5 mg/dL (8.7-10.4)
[2023-10-24 06:20] LABS: BUN/Creatinine Ratio 17.1 (10.0-20.0); Glucose 104 mg/dL (74-106)
[2023-10-24 06:53] LABS: Blood Urea Nitrogen 37 mg/dL (9-23)
[2023-10-24 07:49] LABS: Anion Gap 7 (5-15)
[2023-10-24] MEDS ORDERED: FUROSEMIDE 20 MG/2 ML VIAL IV SCH (10:00)
[2023-10-24] MEDS: METOPROLOL TARTRATE 25 MG TAB GT SCH ×2 (10:00→22:00)
[2023-10-24] MEDS ORDERED: DIGOXIN (250MCG/ML) 2 ML AMPULE IV SCH (10:00)
[2023-10-24] MEDS: ONDANSETRON HCL 4 MG/2 ML VIAL IV PRN ×2 (11:48→22:28)
[2023-10-24] MEDS: EMPAGLIFLOZIN 10 MG TAB GT SCH (11:50)
[2023-10-24] MEDS: MAALOX PLUS or MAALOX 30 ML GT PRN (12:56)
[2023-10-24] MEDS: Jevity 1.2 Cal/Fiber 1 Liter GT SCH ×3 (14:11→22:00)
[2023-10-24] MEDS ORDERED: ACETAMINOPHEN 650 mg PER 20.3 mL UD GT PRN (16:00)
[2023-10-24] MEDS: AMINO ACID INFUSION IN D10W 1,000 ML IV SCH (20:00)
[2023-10-25] MEDS: Jevity 1.2 Cal/Fiber 1 Liter GT SCH ×4 (00:29→14:00)
[2023-10-25] MEDS: ACCU-CHEK COMFORT CURVE STRIP VI SCH ×3 (00:30→11:40)
[2023-10-25] MEDS: MAALOX PLUS or MAALOX 30 ML GT PRN (00:37)
[2023-10-25 05:00] VITALS: BP 104/64; PULSE 99; RESP 22; TEMP 98.2; O2SAT 98
[2023-10-25 05:30] VITALS: BP 104/64; PULSE 99; RESP 20; TEMP 98.2; O2SAT 98
[2023-10-25] MEDS: InsuLIN REG 1unit/0.01ml Soln (100units/ml) SC SCH ×3 (05:36→11:43)
[2023-10-25] MEDS: PIPERACILLIN-TAZOB 3.375GM 100 ML IV SCH ×2 (05:50→13:55)
[2023-10-25] MEDS: METOCLOPRAMIDE 10 mg/10ml ORAL soln GT SCH ×3 (05:55→13:56)
[2023-10-25 06:42] LABS: Chloride 102 mmol/L (98-107); Potassium 3.3 mmol/L (3.5-5.1); Sodium 137 mmol/L (136-145)
[2023-10-25 06:43] LABS: Anion Gap 8 (5-15); Calcium 9.4 mg/dL (8.5-10.1); Carbon Dioxide 27 mmol/L (20-30)
[2023-10-25 06:48] LABS: BUN/Creatinine Ratio 19.3 (10.0-20.0); Blood Urea Nitrogen 43 mg/dL (9-23); Glucose 96 mg/dL (74-106)
[2023-10-25 08:00] VITALS: PULSE 103; PULSE 98; RESP 16; O2SAT 100
[2023-10-25 09:00] VITALS: BP 115/69; PULSE 67; RESP 15; TEMP 98.1; O2SAT 97
[2023-10-25] MEDS: METOPROLOL TARTRATE 25 MG TAB GT SCH (10:36)
[2023-10-25] MEDS: EMPAGLIFLOZIN 10 MG TAB GT SCH (10:36)
[2023-10-25 12:55] VITALS: BP 110/71; PULSE 103; RESP 16; TEMP 98.8; O2SAT 100
== END 2023-10-25 17:48 | DRG 640 ==
LOC: TELE-WESTW 22:19 → UNDOADMIN 22:19 → TELE-WESTW 23:47
PROVIDERS: ADMIT Internal Medicine; ATTEND Hospitalist
PROC: 05HB33Z Insertion of Infusion Device into Right Basilic Vein, Percutaneous Approach (ICD-10-PCS; 2023-10-17)
PROC: B54MZZA Ultrasonography of Right Upper Extremity Veins, Guidance (ICD-10-PCS; 2023-10-17)
PROC: 0DH60UZ Insertion of Feeding Device into Stomach, Open Approach (ICD-10-PCS; principal; 2023-10-18 10:01)
DX: R62.7 Adult failure to thrive (principal); I50.23 Acute on chronic systolic (congestive) heart failure; I13.0 Hypertensive heart and chronic kidney disease with heart failure and stage 1 through stage 4 chronic kidney disease, or unspecified chronic kidney disease; Q61.2 Polycystic kidney, adult type; N39.0 Urinary tract infection, site not specified; K56.7 Ileus, unspecified; E44.1 Mild protein-calorie malnutrition; C01 Malignant neoplasm of base of tongue; E86.0 Dehydration; D69.59 Other secondary thrombocytopenia; T45.1X5A Adverse effect of antineoplastic and immunosuppressive drugs, initial encounter; D72.819 Decreased white blood cell count, unspecified; N18.32 Chronic kidney disease, stage 3b; R63.4 Abnormal weight loss; Z85.118 Personal history of other malignant neoplasm of bronchus and lung; Z87.891 Personal history of nicotine dependence; Z95.810 Presence of automatic (implantable) cardiac defibrillator; Z68.25 Body mass index [BMI] 25.0-25.9, adult; Z74.01 Bed confinement status; R13.19 Other dysphagia
CPT/HCPCS: 36415; 36600; 71045; 80048; 80053; 80069; 81001; 82805; 82962; 83735; 83880; 84100; 84443; 84484; 85007; 85025; 85027; 85610; 85730; 86850; 86900; 86901; 92610; 93005; 93306; C9113; G0378; J0131; J1815; J2405; J2543; J3480; J3490; J7060

== ENCOUNTER 2023-11-29 09:52 | Emergency (ER) | payer BC, OTHER ==
[~2023-11-29] VITALS: Ht 154.9 cm; Wt 53.0 kg
[~2023-11-29 09:52] MED LIST: ATOR40TA52 PO; CARV12.544 PO; DICL50TA2 PO; DOCU-265 PO; FURO20TA3 PO; ISOS1TAB28 PO; LORA-1121 PO; LOSA100T58 PO; NIFE1TAB30 PO; OMEP20TA PO; PANT1INJ3 PO; TAMS0.4C36 PO
[2023-11-29 10:11] VITALS: BP 127/77; PULSE 78; RESP 16; TEMP 97.3; O2SAT 100
== END 2023-11-29 13:41 | disposition home or self-care (01) ==
LOC: ER 09:52
DX: K94.23 Gastrostomy malfunction (principal); Z79.899 Other long term (current) drug therapy